=== PATIENT | female | born 1950 | race Caucasian/White ===

== ENCOUNTER → 2021-03-01 08:57 | Outpatient (CLI) | payer MEDICARE, SELFPAY ==
[2021-03-01 20:56] LABS: COVID19 - ORCAS (NP or Nasal) Negative (Negative)
== END ==
PROVIDERS: PCP Family Medicine; Visit Provider Family Medicine
DX: Z20.822 Contact with and (suspected) exposure to COVID-19 (principal)
CPT/HCPCS: C9803; U0003

== ENCOUNTER → 2022-03-09 12:18 | Outpatient (CLI) | payer MEDICARE, SELFPAY ==
--- NOTE | 2022-03-09 12:22 | DI.ECHO.S_ITS ---
[facility]---------+ [facility] +---------+ : : [address] : [place] [address] : : : : [id number] : : : : Phone: [phone]+ Echocardiogram Report + + :Name: REDDY SMITH Study Date: 03/09/2022 Height: 62 in : :[facility] ReadingLocation: Weight: 145 lb : : Gender: Female BSA: 1.7 m2 : :: 1950 Age: 71 yrs BP: 137/94 mmHg: :Reason For Study: MITRAIL INSUFFICIENCY : :Ordering Physician: SHAKIRA, : :RIGO Performed By: Krystyna Raines : :Referring: RIGO ROSENBERG : + + Interpretation Summary The ejection fraction is estimated to be 60-65%. Diastolic parameters suggest probable normal left ventricular diastolic function and normal filling pressures. The right ventricle is normal in size and function. There is trace mitral regurgitation. There is mild tricuspid regurgitation. The right ventricular systolic pressure is estimated to be at least 23 mmHg based on an estimated right atrial pressure of 3 mm Hg. Procedure: A two-dimensional transthoracic echocardiogram with color flow and Doppler was performed. The study quality was technically adequate. The patient was in sinus rhythm with heart rates between 62-68 bpm during the exam. Left Ventricle: The left ventricle is normal in size and wall thickness. The ejection fraction is estimated to be 60-65%. Diastolic parameters suggest probable normal left ventricular diastolic function and normal filling pressures. Right Ventricle: The right ventricle is normal in size and function. Atria: The left atrial size is normal. Right atrial size is normal. There is no Doppler evidence for an interatrial shunt. Mitral Valve: The mitral valve is normal in structure and function. There is trace mitral regurgitation. Aortic Valve: The aortic valve is trileaflet. The aortic valve opens well. There is no aortic valve stenosis. No aortic regurgitation is present. Tricuspid Valve: The tricuspid valve is normal in structure and function. There is mild tricuspid regurgitation. The right ventricular systolic pressure is estimated to be at least 23 mmHg based on an estimated right atrial pressure of 3 mm Hg. Pulmonic Valve: The pulmonic valve leaflets are thin and pliable; valve motion is normal. There is trace pulmonic regurgitation. Great Vessels: The aortic root is normal size. The dimensions of the ascending aorta are normal. The IVC is of normal diameter and collapses greater than 50% with a sniff. This suggests a low right atrial pressure of 3 mm Hg. Pericardium/ Pleura There is no pericardial effusion. There is no pleural effusion. MMode/2D Measurements & Calculations LVIDd: 4.2 cm LVOT diam: 2.0 cm LVIDs: 2.7 cm Ao root diam: 3.0 cm FS: 36.7 % asc Aorta Diam: 3.1 cm IVSd: 0.86 cm Ao Arch Diam (Prox Trans): 2.7 cm LVPWd: 1.00 cm LV ramirez. diameter/BSA (cm/m^2): 2.5 LV sys. diameter/BSA (cm/m^2): 1.6 LA A2 area: 16.6 cm2 RA long axis: 5.1 cm LA A4 area: 17.5 cm2 RA area: 13.8 cm2 LA length (vol): 5.2 cm RA vol: 31.8 ml LA vol: 47.1 ml RA : 19.1 ml/m2 LA vol index: 28.3 ml/m2 IVC diam: 0.87 cm RVD1 (basal): 3.2 cm RVD2 (mid): 3.0 cm TAPSE: 2.3 cm Doppler Measurements & Calculations Ao V2 max: 138.7 cm/sec LVOT Max Sharan: 104.5 cm/sec Ao V2 mean: 88.2 cm/sec LV V1 max P.4 mmHg Ao max P.7 mmHg LV V1 VTI: 23.4 cm Ao mean P.6 mmHg WILLIAM(I,D): 2.6 cm2 Ao V2 VTI: 28.2 cm WILLIAM(V,D): 2.3 cm2 sev ratio: 0.83 WILLIAM indexed to BSA (cm^2/m^2): 1.5 MV E max sharan: 68.4 cm/sec TR max sharan: 220.9 cm/sec MV A max sharan: 72.4 cm/sec TR max P.5 mmHg MV E/A: 0.94 PA V2 max: 98.7 cm/sec Med Peak E' Sharan: 7.1 cm/sec PA V2 mean: 64.8 cm/sec E/E' med: 9.6 PA mean P.0 mmHg Lat Peak E' Sharan: 9.1 cm/sec PA pr(Accel): 17.3 mmHg E/E' lat: 7.5 E/e' average: 8.6 MV dec time: 0.26 sec SV(LVOT): 72.6 ml Reading Physician:05:01 PM
== END ==
PROVIDERS: PCP Family Medicine; Referring Provider Nurse Practitioner Acute Care; Visit Provider Nurse Practitioner Acute Care
DX: I34.0 Nonrheumatic mitral (valve) insufficiency (principal)
CPT/HCPCS: 93306

== ENCOUNTER → 2023-11-30 11:31 | Outpatient (CLI) | payer MEDICARE, SELFPAY ==
--- NOTE | 2023-11-30 11:33 | DI.RAD.S_ITS ---
PROCEDURE: XR DEXA AXIAL SKELETON INDICATIONS: BONE DENSITY COMPARISON: None. FINDINGS: Lumbar Spine: Bone mineral density 0.885 g/cm2, T score -1.5, osteopenia. Right Hip: Bone mineral density 0.755 g/cm2, T score -1.5, osteopenia. Right Femoral Neck: Bone mineral density 0.618 g/cm2, T score -2.1, osteopenia. Left Forearm: Bone mineral density 0.594 g/cm2, T score -1.7, osteopenia. Fracture Risk Calculation (when applicable): 10-year fracture risk of a major osteoporotic fracture 13% and of a hip fracture 3.1%. (T score greater or equal to -1.0 to: NORMAL) (T score from -1.1 to -2.4: OSTEOPENIA) (T score less than or equal to -2.5: OSTEOPOROSIS) IMPRESSION: Osteopenia elevates the patient's 10 year fracture risk as described. Follow-up guidelines as follows: Osteoporosis: Consider a repeat DEXA and Vertebral Fracture Assessment (VFA) exam in 2 years or sooner if medically necessary, to reassess this patient's status. Osteopenia: Consider a repeat DEXA in 2-3 years to reassess this patient's status, or if there is a new clinical indication. Normal: Consider a repeat DEXA in 5 years or sooner, or if there is a new clinical indication. All treatment decisions require clinical judgment and consideration of individual patient factors, including patient preferences, comorbidities, previous drug use, risk factors not captured in the FRAX model (e.g., frailty, falls, vitamin D deficiency, increased bone turnover, interval significant decline in bone density ) and possible under- or over-estimation of fracture risk by FRAX. In addition, the NOF Guide recommends that FDA-approved medical therapies be considered in postmenopausal women and men age >= 50 years with a: * Hip or vertebral (clinical or morphometric) fracture * T-score of <=-2.5 at the spine or hip * Ten-year fracture probability by FRAX of >= 3% for hip fracture or >=20% for major osteoporotic fracture. People with diagnosed cases of osteoporosis or at high risk for fracture should have regular bone mineral density tests. For patients eligible for Medicare, routine testing is allowed once every 2 years. The testing frequency can be increased to one year for patients who have rapidly progressing disease, those who are receiving or discontinuing medical therapy to restore bone mass, or have additional risk factors. Dictated by: Brenna Velez M.D. on 11/30/2023 at 21:10 Approved by: Brenna Velez M.D. on 11/30/2023 at 21:12
== END ==
PROVIDERS: PCP Family Medicine; Referring Provider Family Medicine; Visit Provider Family Medicine
DX: M85.89 Other specified disorders of bone density and structure, multiple sites (principal)
CPT/HCPCS: 77080; 77081

== ENCOUNTER → 2024-03-27 09:51 | Outpatient (CLI) | payer MEDICARE, SELFPAY ==
--- NOTE | 2024-03-27 09:53 | DI.ECHO.S_ITS ---
[facility] +---------+ [facility] : : [address] : : [place] : : [id number] : : Phone: [phone] Echocardiogram Report + + :Name: REDDY SMITH Study Date: 03/27/2024 Height: 62.5 in: :[facility] ReadingLocation: Weight: 143 lb : : Gender: Female BSA: 1.7 m2 : :: 1950 Age: 73 yrs BP: 150/87 mmHg: :Reason For Study: CORONARY ATHEROSCLEROSIS : :Ordering Physician: YOVANI, : :BENITA Sigala Performed By: Krystyna Raines : :Referring: BENITA ORTA : + + Interpretation Summary The ejection fraction is estimated to be 60-65%. Diastolic parameters suggest probable normal left ventricular diastolic function and normal filling pressures. The right ventricle is normal in size and function. There is mild mitral regurgitation. There is mild tricuspid regurgitation. Pulmonary artery pressures cannot be estimated because of the lack of a measurable TR jet velocity but the IVC suggests a CVP of around 3 mmHg. Compared to the prior study dated 03/09/2022, no significant change. Procedure: A two-dimensional transthoracic echocardiogram with color flow and Doppler was performed. The study quality was technically adequate. Comparison is made with the echocardiogram of 03/09/2022. The patient was in sinus rhythm with heart rates between 60-72 bpm during the exam. Left Ventricle: The left ventricle is normal in size and wall thickness. The ejection fraction is estimated to be 60-65%. Diastolic parameters suggest probable normal left ventricular diastolic function and normal filling pressures. Right Ventricle: The right ventricle is normal in size and function. Atria: The left atrial size is normal. Right atrial size is normal. There is no Doppler evidence for an interatrial shunt. Mitral Valve: The mitral valve is normal. There is mild mitral regurgitation. There are multiple regurgitant jets present. Aortic Valve: The aortic valve is trileaflet. The aortic valve opens well. There is no aortic valve stenosis. No aortic regurgitation is present. Tricuspid Valve: The tricuspid valve is normal in structure and function. There is mild tricuspid regurgitation. Pulmonary artery pressures cannot be estimated because of the lack of a measurable TR jet velocity but the IVC suggests a CVP of around 3 mmHg. Pulmonic Valve: The pulmonic valve leaflets are thin and pliable; valve motion is normal. There is trace pulmonic regurgitation. Great Vessels: The aortic root is normal size. The dimensions of the ascending aorta are normal. The IVC is of normal diameter and collapses greater than 50% with a sniff. This suggests a low right atrial pressure of 3 mm Hg. Pericardium/ Pleura There is no pericardial effusion. There is no pleural effusion. MMode/2D Measurements & Calculations LVIDd: 4.9 cm LVOT diam: 2.0 cm LVIDs: 3.0 cm Ao root diam: 3.0 cm FS: 39.3 % asc Aorta Diam: 3.5 cm EPSS: 0.84 cm Ao Arch Diam (Prox Trans): 2.7 cm IVSd: 0.67 cm LVPWd: 0.67 cm LV ramirez. diameter/BSA (cm/m^2): 2.9 LV sys. diameter/BSA (cm/m^2): 1.8 LA A2 area: 17.8 cm2 RA long axis: 5.0 cm LA A4 area: 14.5 cm2 RA area: 14.6 cm2 LA length (vol): 4.8 cm RA vol: 36.4 ml LA vol: 45.7 ml RA : 21.8 ml/m2 LA vol index: 27.4 ml/m2 IVC diam: 1.1 cm RVD1 (basal): 3.6 cm RVD2 (mid): 3.0 cm TAPSE: 2.6 cm Doppler Measurements & Calculations Ao V2 max: 152.9 cm/sec LVOT Max Sharan: 104.2 cm/sec Ao V2 mean: 102.3 cm/sec LV V1 max P.3 mmHg Ao max P.3 mmHg LV V1 VTI: 23.8 cm Ao mean P.8 mmHg WILLIAM(I,D): 2.2 cm2 Ao V2 VTI: 34.3 cm WILLIAM(V,D): 2.1 cm2 sev ratio: 0.70 WILLIAM indexed to BSA (cm^2/m^2): 1.3 MV E max sharan: 81.6 cm/sec TR max sharan: 231.2 cm/sec MV A max sharan: 75.9 cm/sec TR max P.4 mmHg MV E/A: 1.1 PA V2 max: 113.5 cm/sec Med Peak E' Sharan: 8.0 cm/sec PA V2 mean: 77.1 cm/sec E/E' med: 10.2 PA mean P.6 mmHg Lat Peak E' Sharan: 9.7 cm/sec PA pr(Accel): 24.2 mmHg E/E' lat: 8.4 E/e' average: 9.3 MV dec time: 0.21 sec SV(LVOT): 74.1 ml Reading Physician:03:29 PM
--- NOTE | 2024-03-27 21:34 | DI.NM.S_ITS ---
DATE OF SERVICE: 03/27/2024 PROCEDURE: Exercise perfusion study. INDICATIONS: Known CAD with coronary calcification, Mobitz type 2 degree AV block, palpitation, dyslipidemia. RADIOPHARMACEUTICAL: 23.3 mCi technetium-99m Myoview IV was injected at stress and 8.1 mCi technetium-99m Myoview IV was injected at rest. CARDIAC STRESS: The patient underwent exercise perfusion study under the supervision of an attending staff using standard Jaron protocol. The patient walked on Jaron protocol for 9 minutes and 1 second, achieved maximum heart rate of 163 which was 111% of target heart rate. Resting blood pressure 134/80 and peak blood pressure 158/90. Baseline rhythm was sinus. During stress, no convincing ischemic changes seen. In recovery, some isolated PVCs without any ventricular tachycardia. No chest pain. The patient has some shortness of breath. RAW DATA: There is adequate myocardial uptake. GATED STUDY: Stress LV ejection fraction 75% without any obvious wall motion abnormalities. Resting end-diastolic volume 78 mL. TID ratio 0.76, which is within normal limits. Lung/heart ratio 0.42, which is within normal limits. MYOCARDIAL PERFUSION SCAN: Stress supine, resting supine, and stress prone images were compared to each other. There is normal myocardial perfusion. No convincing ischemia or infarction pattern seen. CONCLUSION: This is a normal myocardial perfusion study. Excellent exercise tolerance. TARAN -61%. Normal hemodynamic response. Occasional PVCs in recovery. No anginal symptoms. Preserved LV function. Overall, low-risk myocardial perfusion scan. Missy Maritza - JORGE/cristian/HEMALATHA doc#: [id number]/job#: [id number] dd: 03/27/2024 16:59:00 dt: 03/27/2024 21:27:00 DICTATING MD/COPIES TO: Marcos Olvera MD COPIES MNE: YAMILE;
== END ==
LOC: NUCM 09:52
PROVIDERS: PCP Family Medicine; Referring Provider Internal Medicine Cardiovascular Disease; Visit Provider Internal Medicine Cardiovascular Disease
DX: I08.0 Rheumatic disorders of both mitral and aortic valves (principal); I25.10 Atherosclerotic heart disease of native coronary artery without angina pectoris; I25.84 Coronary atherosclerosis due to calcified coronary lesion; I44.1 Atrioventricular block, second degree; R00.2 Palpitations; E78.5 Hyperlipidemia, unspecified
CPT/HCPCS: 78452; 93017; 93306; A9502